=== PATIENT | male | born 2000 | race African-American/Black ===

== ENCOUNTER 2020-05-18 14:12 | Emergency (ER) | payer SELFPAY ==
[~2020-05-18] VITALS: Ht 170.2 cm; Wt 54.0 kg
[2020-05-18 14:49] VITALS: BP 130/83
[2020-05-18] MEDS ORDERED: DEXAMETHASONE SOD PHOS 20 MG/5 ML VIAL. IM ONE (16:00)
[2020-05-18] MEDS ORDERED: AMOXICILLIN/K CLAV 875/125MG TABLET. PO ONE (16:00)
[2020-05-18] MEDS ORDERED: LIDOCAINE 2% VISCOUS 15 ML SOLUTION. SWSW ONE (16:00)
[2020-05-18] MEDS ORDERED: AMOX1TAB61 PO (18:20)
--- NOTE | 2020-05-18 18:20 | PHYS DOC ---
Past Medical History Past Medical History: No Pertinent History Past Surgical History: No Surgical History Smoking Status: Never Smoker Alcohol Use: Rarely Drug Use: None General Adult EDM: Chief Complaint: SORE THROAT HPI: HPI: Patient is a 19-year-old male presents with 2-3 day history of sore throat and difficulty swallowing. Patient reports generalized malaise. Denies headache, cough, shortness of air, nausea/vomiting/diarrhea , or known sick contacts. Patient denies known exposure to COVID-19. Patient did travel to [place] on 05/01/2020. Review of Systems: Review of Systems: Constitutional: Denies fever or chills; reports generalized malaise Eyes: Denies redness or eye pain HENT: Denies nasal congestion; reports sore throat Respiratory: Denies cough or shortness of breath Cardiovascular: Denies chest pain or palpitations GI: Denies abdominal pain, nausea, or vomiting : Denies dysuria or hematuria Musculoskeletal: Denies back pain or joint pain Integument: Denies rash or skin lesions Neurologic: Denies headache, focal weakness or sensory changes Complete systems were reviewed and found to be within normal limits, except as documented in this note. Current Medications: Current Medications Medications (Trade) Dose Ordered Sig/[place] Start Time Stop Time Status Last Admin Dose Admin Amoxicillin/ Clavulanate Potassium (Augmentin 875/ 125mg) 1 tab 1X ONCE 05/18/20 16:00 05/18/20 16:08 DC 05/18/20 16:14 1 TAB Dexamethasone Sodium Phosphate (Decadron) 10 mg 1X ONCE 05/18/20 16:00 05/18/20 16:08 DC 05/18/20 16:14 10 MG Lidocaine HCl (Viscous Lidocaine) 15 ml 1X ONCE 05/18/20 16:00 05/18/20 16:08 DC 05/18/20 16:14 15 ML Allergies: Allergies: Allergies Coded Allergies Type Severity Reaction Last Updated Verified No Known Drug Allergies 05/18/20 No Physical Exam: PE: Constitutional: Well developed, well nourished, no acute distress, non-toxic appearance HENT: Normocephalic, atraumatic, oropharynx moist, pharynx erythematous with tonsillar exudate Eyes: Conjunctiva normal, no discharge Neck: Normal range of motion, no tenderness, supple, no meningeal signs Lungs & Thorax: No respiratory distress, equal chest rise and fall Abdomen: Soft, no tenderness Skin: Warm, dry, no erythema, no rash Extremities: No tenderness, ROM intact, no edema Neurologic: Alert and oriented X 3, no focal deficits noted Psychologic: Affect normal, judgment normal Current Patient Data: Vital Signs: Vital Signs Date Time Temp Pulse Resp B/P (MAP) Pulse Ox O2 Delivery O2 Flow Rate FiO2 05/18/20 14:49 99.7 81 16 130/83 (99) 98 Room Air 99.7 EKG: EKG: [] Radiology/Procedures: Radiology/Procedures: [] Course & Med Decision Making: Course & Med Decision Making Pertinent Lab studies reviewed. (See chart for details) Patient presents with several day history of sore throat. Pharyngeal erythema and tonsillar exudate appreciated. Rapid strep negative. Monospot positive. Symptomatic treatment provided. Cannot fully exclude bacterial on top of viral infection. Empiric antibiotic prescribed with recommendation to "watch and wait" before initiation of antibiotic. Patient stable for discharge with outpatient follow-up with PCP. Discussed findings and plan with patient, who acknowledges understanding and agreement. Christiano Disclaimer: Christiano Disclaimer: This electronic medical record was generated, in whole or in part, using a voice recognition dictation system. Departure Departure Impression: Primary Impression: Pharyngitis Qualified Codes: J02.9 - Acute pharyngitis, unspecified Additional Impression: Infectious mononucleosis Qualified Codes: B27.90 - Infectious mononucleosis, unspecified without complication Disposition: HOME, SELF-CARE Condition: STABLE Referrals: NO PCP (PCP) Patient Instructions: Viral and Bacterial Pharyngitis, [id number] Additional Instructions: Use over the counter Tylenol and/or Ibuprofen for pain or discomfort or for fever. Please take antibiotic until completed. You may be called with results of your mono test and/or throat culture. Scripts Amoxicillin/Potassium Clav (AUGMENTIN 875-125 TABLET) 1 Each Tablet 1 TAB PO BID, #14 TAB Prov: ELIF BREEN DO 05/18/20 Justicifation of Admission Dx: Justifications for Admission: Justification of Admission Dx: N/A ELIF BREEN DO May 18, 2020 18:20
[2020-05-18 18:42] LABS: MONONUCLEOSIS PATIENT POSITIVE (NEGATIVE)
== END 2020-05-18 18:25 | disposition home or self-care (01) ==
LOC: ER 14:12
DX: J02.9 Acute pharyngitis, unspecified (principal)
CPT/HCPCS: 86308; 87070; 87880; 96372; 99283; J1100